=== PATIENT | female | born 2005 | race Caucasian/White ===

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

== ENCOUNTER 2025-05-10 12:05 | Emergency (ER) | payer BC ==
[~2025-05-10] VITALS: Ht 165.1 cm; Wt 72.6 kg
[2025-05-10 12:05] VITALS: PULSE 98; RESP 17; TEMP 98.2; O2SAT 100
[~2025-05-10 12:05] MED LIST: AUGMENTIN 500-1 EACH PO
[2025-05-10 13:19] LABS: LEUKOCYTE ESTERASE ,URINE MODERATE (NEGATIVE); PROTEIN,URINE DIPSTICK NEGATIVE (NEGATIVE); URINE UROBILINOGEN 0.2 mg/dL (0.2 - 1)
[2025-05-10 13:22] LABS: EPITHELIAL CELLS,URINE FEW /LPF; PREGNANCY TEST, URINE NEGATIVE (NEGATIVE); WBC,URINE (MAN) 21-50 /HPF (0-5)
[2025-05-10] MEDS ORDERED: CEPHALEXIN500 MG PO (13:49)
== END 2025-05-10 14:08 | disposition home or self-care (01) ==
LOC: ER 12:12
DX: R30.0 Dysuria (principal); N39.0 Urinary tract infection, site not specified; R10.30 Lower abdominal pain, unspecified
CPT/HCPCS: 81001; 81025; 87086; 87186; 99282